=== PATIENT | female | born 1945 | race American Indian/Alaskan Native ===

== ENCOUNTER 2022-05-17 12:53 | Inpatient (IN) | payer MEDICARE ==
[2022-05-17 16:31] LABS: Basophils % (Auto) 0.6 % (0.0-1.8); Eosinophils # (Auto) 0.1 K/mm3 (0.0-0.4); Eosinophils % (Auto) 1.4 % (0.0-4.3); Hematocrit 21.5 % (30.3-42.9); Hemoglobin 7.1 gm/dl (10.1-14.3); Lymphocytes # (Auto) 1.1 K/mm3 (1.2-5.4); Mean Corpuscular HGB Conc 33 % (30-34); Mean Corpuscular Volume 103 fl (79-97); Monocytes # (Auto) 0.7 K/mm3 (0.0-0.8); Platelet Count 180 K/mm3 (140-440); Red Blood Count 2.09 M/mm3 (3.65-5.03); Red Cell Distribution Width 17.7 % (13.2-15.2)
[2022-05-17 17:18] LABS: Albumin 3.9 g/dL (3.9-5); Calcium 10.2 mg/dL (8.4-10.2)
[2022-05-17 17:30] LABS: Chol/HDL Ratio 1.85 %
--- NOTE | 2022-05-17 17:55 | Emergency Department Report ---
ED Recheck HPI - General Chief Complaint: Recheck/Abnormal Lab/Rx Stated Complaint: PAIN Time Seen by Provider: 05/17/22 17:31 Source: patient Mode of arrival: Ambulatory Limitations: Physical Limitation - History of Present Illness Initial Comments: 76-year-old female present emergency department complaint of dyspnea, dizziness, out of breath and hypotension. Patient states she is currently on Eliquis and was told today that she had low hemoglobin level. She denies any fevers chills cough or chest pain. - Related Data Allergies Allergy/AdvReac Type Severity Reaction Status Date / Time No Known Allergies Allergy Verified 05/17/22 15:20 ED Review of Systems ROS: Stated complaint: PAIN Other details as noted in HPI Constitutional: denies: chills, fever Eyes: denies: eye pain, eye discharge, vision change ENT: denies: ear pain, throat pain Respiratory: denies: cough, shortness of breath, wheezing Cardiovascular: denies: chest pain, palpitations Endocrine: no symptoms reported Gastrointestinal: denies: abdominal pain, nausea, diarrhea Genitourinary: denies: urgency, dysuria, discharge Musculoskeletal: denies: back pain, joint swelling, arthralgia Skin: denies: rash, lesions Neurological: weakness. denies: headache, paresthesias Psychiatric: denies: anxiety, depression Hematological/Lymphatic: denies: easy bleeding, easy bruising ED Physical Exam - General Limitations: Physical Limitation General appearance: alert, in no apparent distress - Head Head exam: Present: atraumatic, normocephalic - Eye Eye exam: Present: normal appearance - ENT ENT exam: Present: mucous membranes moist - Neck Neck exam: Present: normal inspection - Respiratory Respiratory exam: Present: normal lung sounds bilaterally. Absent: respiratory distress - Cardiovascular Cardiovascular Exam: Present: regular rate, normal rhythm. Absent: systolic murmur, diastolic murmur, rubs, gallop - GI/Abdominal GI/Abdominal exam: Present: soft, normal bowel sounds - Extremities Exam Extremities exam: Present: normal inspection - Back Exam Back exam: Present: normal inspection - Neurological Exam Neurological exam: Present: alert, oriented X3 - Psychiatric Psychiatric exam: Present: normal affect, normal mood - Skin Skin exam: Present: warm, dry, intact, normal color. Absent: rash ED Course Vital Signs 05/17/22 05/17/22 05/17/22 15:14 17:54 18:46 Temperature 98.2 F Pulse Rate 86 100 H 100 H Respiratory 18 18 Rate Blood Pressure Blood Pressure 81/26 111/73 112/74 [Right] O2 Sat by Pulse 98 100 99 Oximetry 05/17/22 05/17/22 05/17/22 19:59 20:00 20:16 Temperature Pulse Rate 100 H Respiratory 16 Rate Blood Pressure 120/52 106/31 Blood Pressure [Right] O2 Sat by Pulse 100 100 100 Oximetry 05/17/22 05/17/22 05/17/22 20:30 20:46 21:00 Temperature Pulse Rate 97 H 100 H 99 H Respiratory 20 14 18 Rate Blood Pressure 103/28 95/36 91/37 Blood Pressure [Right] O2 Sat by Pulse 98 99 98 Oximetry 05/17/22 05/17/22 05/17/22 21:16 21:30 21:50 Temperature Pulse Rate 102 H 102 H 102 H Respiratory 27 H 19 21 Rate Blood Pressure 112/38 99/32 107/41 Blood Pressure [Right] O2 Sat by Pulse 96 98 96 Oximetry 05/17/22 05/17/22 05/17/22 22:00 22:10 22:20 Temperature Pulse Rate 99 H 99 H 100 H Respiratory 21 22 17 Rate Blood Pressure 100/43 100/43 118/43 Blood Pressure [Right] O2 Sat by Pulse 94 97 99 Oximetry 05/17/22 05/17/22 05/17/22 22:30 22:40 22:50 Temperature Pulse Rate 103 H 103 H 101 H Respiratory 25 H 20 20 Rate Blood Pressure 116/42 116/42 98/34 Blood Pressure [Right] O2 Sat by Pulse 98 97 96 Oximetry 05/17/22 05/17/22 22:56 23:11 Temperature 98.6 F 98.4 F Pulse Rate 101 H 101 H Respiratory 18 18 Rate Blood Pressure 98/34 81/45 Blood Pressure [Right] O2 Sat by Pulse Oximetry - Reevaluation(s) Reevaluation #1: 05/17/22 18:37 On rectal exam it was pinkish stool. Given this and given that patient was initially hypotensive we will give 1 unit packed red blood cells and reassess patient. 05/17/22 23:26 Patient has been admitted to the hospitalist and she is guaiac positive. Patient has seen Dr. Johnson as an outpatient. Plan for consultation with GI on- call. ED Recheck MDM - Medical Decision Making 76-year-old female presented emergency department with complaints of feeling lightheaded dizzy and noted to have a low hemoglobin with outpatient labs. Patient's hemoglobin here is 7.1. Patient did have episode of hypotension but blood pressure now is normal. Patient's heart rate is currently normal Critical care attestation.: If time is entered above; I have spent that time in minutes in the direct care of this critically ill patient, excluding procedure time. ED Disposition Clinical Impression: GI bleed, Anemia Disposition: ADMITTED INPATIENT Is pt being admited?: Yes Does the pt Need Aspirin: No Condition: Stable
[2022-05-17] MEDS ORDERED: SODIUM CHLORIDE 0.9% 500 ML 500 ML IV ONE ×2 (18:36→23:00)
[2022-05-17] MEDS ORDERED: PANTOPRAZOLE 40 MG INJ IV ONE (21:39)
[2022-05-17] MEDS ORDERED: MORPHINE 4 MG/1 ML INJ IV PRN (21:59)
[2022-05-17] MEDS ORDERED: ACETAMINOPHEN 325 MG TAB PO PRN ×2 (21:59→22:33)
[2022-05-17] MEDS ORDERED: MORPHINE 2 MG/1 ML INJ IV PRN (21:59)
[2022-05-17] MEDS ORDERED: ONDANSETRON 4 MG/2 ML INJ IV PRN ×2 (21:59→22:33)
--- NOTE | 2022-05-17 22:43 | History and Physical Report ---
History of Present Illness Date of examination: 05/17/22 Date of admission: 05/17/2022 Chief complaint: Dizziness Shortness of Breath History of present illness: 26-year-old female with known history of end-stage renal disease on dialysis, history of pulmonary embolism on Eliquis presenting to the emergency room today complaining of shortness of breath and dizziness. Patient denies any chest pain, no fever or chills, no nausea or vomiting and no abdominal pain. Upon arrival in the emergency room today patient was found to be hypotensive with systolic blood pressure in the 90s and diastolic in the 30s. Patient states she stopped taking her Eliquis a few days ago. Work-up in the emergency room today reveals hemoglobin of 7.1 and hematocrit of 21.5. BUN of 24 and creatinine of 5.5. Troponin of 0.047. Patient was also found to be stool Hemoccult positive. She has been scheduled for unit of packed red blood cell transfusion. Patient has also been started on IV Protonix. Past History Past Medical History: dialysis, ESRD Past Surgical History: Other (AV fistula placement) Social history: no significant social history Family history: no significant family history Medications and Allergies Allergies Allergy/AdvReac Type Severity Reaction Status Date / Time No Known Allergies Allergy Verified 05/17/22 15:20 Active Meds: Active Medications Acetaminophen (Acetaminophen 325 Mg Tab) 650 mg PO Q4H PRN PRN Reason: Pain MILD(1-3)/Fever >100.5/PALAFOX Acetaminophen (Acetaminophen 325 Mg Tab) 650 mg PO Q4H PRN PRN Reason: Pain MILD(1-3)/Fever >100.5/PALAFOX Sodium Chloride (Nacl 0.9% 500 Ml) 500 mls @ 0 mls/hr IV ONCE ONE Stop: 05/17/22 23:01 Morphine Sulfate (Morphine 2 Mg/1 Ml Inj) 2 mg IV Q4H PRN PRN Reason: Pain, Moderate (4-6) Morphine Sulfate (Morphine 4 Mg/1 Ml Inj) 4 mg IV Q4H PRN PRN Reason: Pain , Severe (7-10) Ondansetron HCl (Ondansetron 4 Mg/2 Ml Inj) 4 mg IV Q8H PRN PRN Reason: Nausea And Vomiting Ondansetron HCl (Ondansetron 4 Mg/2 Ml Inj) 4 mg IV Q8H PRN PRN Reason: Nausea And Vomiting Sodium Chloride (Sodium Chloride 0.9% 10 Ml Flush Syringe) 10 ml IV BID JANET Sodium Chloride (Sodium Chloride 0.9% 10 Ml Flush Syringe) 10 ml IV PRN PRN PRN Reason: LINE FLUSH Sodium Chloride (Sodium Chloride 0.9% 10 Ml Flush Syringe) 10 ml IV BID JANET Sodium Chloride (Sodium Chloride 0.9% 10 Ml Flush Syringe) 10 ml IV PRN PRN PRN Reason: LINE FLUSH Review of Systems Constitutional: no fever, no chills Ears, nose, mouth and throat: no nasal congestion, no sore throat Cardiovascular: no chest pain, no palpitations Respiratory: shortness of breath, no cough Gastrointestinal: no abdominal pain, no nausea, no vomiting, no diarrhea Genitourinary Female: no pelvic pain, no flank pain, no dysuria Musculoskeletal: no neck pain, no low back pain Integumentary: no rash, no pruritis Neurological: no headaches, no confusion Psychiatric: no anxiety, no depression Endocrine: no polyphagia, no polydipsia, no polyuria Exam - Constitutional Vitals: Temp Pulse Resp BP Pulse Ox 98.2 F 102 H 19 99/32 98 05/17/22 15:14 05/17/22 21:30 05/17/22 21:30 05/17/22 21:30 05/17/22 21:30 General appearance: Present: no acute distress, well-nourished, obese - EENT Eyes: Present: PERRL, EOM intact. Absent: scleral icterus ENT: hearing intact, clear oral mucosa, dentition normal - Neck Neck: Present: supple, normal ROM - Respiratory Respiratory effort: normal Respiratory: bilateral: CTA - Cardiovascular Rhythm: regular Heart Sounds: Present: S1 & S2. Absent: gallop, systolic murmur, diastolic murmur, rub, click - Extremities Extremities: no ischemia, pulses intact, pulses symmetrical, No edema, normal temperature, normal color, Full ROM, abnormal (Left upper arm A-V Fistula) Peripheral Pulses: within normal limits - Abdominal General gastrointestinal: Present: soft, non-tender, non-distended, normal bowel sounds. Absent: mass - Integumentary Integumentary: Present: clear, warm, dry, normal turgor. Absent: rash - Musculoskeletal Musculoskeletal: strength equal bilaterally - Psychiatric Psychiatric: appropriate mood/affect, intact judgment & insight, memory intact, cooperative - Neurologic Neurologic: CNII-XII intact, no focal deficits, moves all extremities HEART Score - HEART Score Troponin: Troponin T 0.047 ng/mL (0.00-0.029) H D 05/17/22 18:30 Results - Labs CBC & Chem 7: 05/17/22 16:15 05/17/22 16:15 Labs: Abnormal lab results 05/17/22 05/17/22 05/17/22 Range/Units 16:15 16:15 16:22 RBC 2.09 L (3.65-5.03) M/mm3 Hgb 7.1 L (10.1-14.3) gm/dl Hct 21.5 L (30.3-42.9) % MCV 103 H (79-97) fl MCH 34 H (28-32) pg RDW 17.7 H (13.2-15.2) % [place] % (Auto) 11.0 H (0.0-7.3) % Lymph # (Auto) 1.1 L (1.2-5.4) K/mm3 Sodium 146 H (137-145) mmol/L BUN 24 H (7-17) mg/dL Creatinine 5.5 H (0.6-1.2) mg/dL Glucose 125 H (65-100) mg/dL Total Bilirubin 1.70 H (0.1-1.2) mg/dL Alkaline Phosphatase 143 H (35-129) units/L Troponin T 0.059 H (0.00-0.029) ng/mL Total Protein 5.7 L (6.3-8.2) g/dL LDL Cholesterol Direct 41 L (50-130) mg/dL HDL Cholesterol 61 H (40-59) mg/dL Crossmatch See Detail 05/17/22 Range/Units 18:30 RBC (3.65-5.03) M/mm3 Hgb (10.1-14.3) gm/dl Hct (30.3-42.9) % MCV (79-97) fl MCH (28-32) pg RDW (13.2-15.2) % [place] % (Auto) (0.0-7.3) % Lymph # (Auto) (1.2-5.4) K/mm3 Sodium (137-145) mmol/L BUN (7-17) mg/dL Creatinine (0.6-1.2) mg/dL Glucose (65-100) mg/dL Total Bilirubin (0.1-1.2) mg/dL Alkaline Phosphatase (35-129) units/L Troponin T 0.047 H D (0.00-0.029) ng/mL Total Protein (6.3-8.2) g/dL LDL Cholesterol Direct (50-130) mg/dL HDL Cholesterol (40-59) mg/dL Crossmatch Assessment and Plan Assessment: 1.Anemia-possibly secondary to GI bleed. 2.ESRD- on dialysis 3.H/O Pulmonary Embolism-on Eliquis Plan: 1.Patient to have blood transfusion. Will monitor CBC 2.GI consult for evaluation and recommendations 3.Nephrology consult for dialysis 4.Will resume routine home medications once reconciled . DVT Prophylaxis: Sequential Compression device CODE STATUS: Full code
[2022-05-18 05:16] LABS: INR 0.98 (0.87-1.13)
[2022-05-18 05:17] LABS: Partial Thromboplastin Time 29.1 Sec. (24.2-36.6)
[2022-05-18 05:23] LABS: Calcium 9.6 mg/dL (8.4-10.2)
--- NOTE | 2022-05-18 09:52 | Gastroenterology Consultation ---
History of Present Illness - Reason for Consult Consult date: 05/18/22 anemia Requesting physician: JOCELYNE LENZ - History of Present Illness The patient is a 76 yo female with esrd on dialysis, h/o PE on eliquis (pt held a few days ago) presented from dialysis due to hypotension and anemia. No overt gi bleeding. was seen by Dr Johnson in clinic due to abd pain with plans for EGD as outpatient at [facility] next month. Denies abd pain at present time or nsaid's. Past History Past Medical History: dialysis, ESRD Past Surgical History: Other (AV fistula placement) Social history: no significant social history Family history: no significant family history Medications and Allergies Allergies Allergy/AdvReac Type Severity Reaction Status Date / Time No Known Allergies Allergy Verified 05/17/22 15:20 Active Meds: Active Medications Acetaminophen (Acetaminophen 325 Mg Tab) 650 mg PO Q4H PRN PRN Reason: Pain MILD(1-3)/Fever >100.5/PALAFOX Morphine Sulfate (Morphine 2 Mg/1 Ml Inj) 2 mg IV Q4H PRN PRN Reason: Pain, Moderate (4-6) Morphine Sulfate (Morphine 4 Mg/1 Ml Inj) 4 mg IV Q4H PRN PRN Reason: Pain , Severe (7-10) Ondansetron HCl (Ondansetron 4 Mg/2 Ml Inj) 4 mg IV Q8H PRN PRN Reason: Nausea And Vomiting Sodium Chloride (Sodium Chloride 0.9% 10 Ml Flush Syringe) 10 ml IV BID JANET Sodium Chloride (Sodium Chloride 0.9% 10 Ml Flush Syringe) 10 ml IV PRN PRN PRN Reason: LINE FLUSH Reviewed/updated patient's home and current medications Review of Systems - Review of Systems All systems: negative (per HPI) Exam - Constitutional Vital Signs: Temp Pulse Resp BP Pulse Ox 98.1 F 96 H 18 115/43 98 05/18/22 04:35 05/18/22 04:35 05/18/22 04:35 05/18/22 04:35 05/18/22 08:00 General appearance: no acute distress - Respiratory Respiratory effort: normal Respiratory: bilateral: CTA - Cardiovascular Rhythm: regular Heart Sounds: Present: S1 & S2 - Gastrointestinal General gastrointestinal: Present: soft, non-tender, non-distended - Neurologic Neurological: alert and oriented x3 - Psychiatric Psychiatric: appropriate mood/affect - Labs CBC & Chem 7: 05/17/22 16:15 05/18/22 04:48 Lab Results: Laboratory Results - last 24 hr 05/17/22 05/17/22 05/17/22 16:15 16:15 16:22 WBC 6.1 RBC 2.09 L Hgb 7.1 L Hct 21.5 L MCV 103 H MCH 34 H MCHC 33 RDW 17.7 H Plt Count 180 Lymph % (Auto) 18.0 [place] % (Auto) 11.0 H Eos % (Auto) 1.4 Baso % (Auto) 0.6 Lymph # (Auto) 1.[address] [place] # (Auto) 0.7 Eos # (Auto) 0.1 Baso # (Auto) 0.0 Seg Neutrophils % 69.0 Seg Neutrophils # 4.2 PT INR APTT Sodium 146 H Potassium 3.7 Chloride 102.5 Carbon Dioxide 30 Anion Gap 17 BUN 24 H Creatinine 5.5 H Estimated GFR 8 BUN/Creatinine Ratio 4 Glucose 125 H Calcium 10.2 Total Bilirubin 1.70 H AST 37 ALT 17 Alkaline Phosphatase 143 H Troponin T 0.059 H Total Protein 5.7 L Albumin 3.9 Albumin/Globulin Ratio 2.2 Triglycerides 98 Cholesterol 113 LDL Cholesterol Direct 41 L HDL Cholesterol 61 H Cholesterol/HDL Ratio 1.85 Blood Type O POSITIVE Antibody Screen Negative Crossmatch See Detail 05/17/22 05/18/22 05/18/22 18:30 04:48 04:48 WBC RBC Hgb Hct MCV MCH MCHC RDW Plt Count Lymph % (Auto) [place] % (Auto) Eos % (Auto) Baso % (Auto) Lymph # (Auto) [place] # (Auto) Eos # (Auto) Baso # (Auto) Seg Neutrophils % Seg Neutrophils # PT 14.1 INR 0.98 APTT 29.1 Sodium 147 H Potassium 3.9 Chloride 105.0 Carbon Dioxide 31 H Anion Gap 15 BUN 30 H Creatinine 6.0 H Estimated GFR 8 BUN/Creatinine Ratio 5 Glucose 86 Calcium 9.6 Total Bilirubin AST ALT Alkaline Phosphatase Troponin T 0.047 H D Total Protein Albumin Albumin/Globulin Ratio Triglycerides Cholesterol LDL Cholesterol Direct HDL Cholesterol Cholesterol/HDL Ratio Blood Type Antibody Screen Crossmatch Assessment and Plan 1. Anemia with heme positive stool - denies overt gi bleeding. given prior abd pain and AC use, will plan EGD today. unclear baseline H/H, but suspect has anemia of chronic disease as well from renal failure 2. Abdominal pain - per outpatient clinic note, no obvious symptoms at present time. 3. History of PE - pt self discontinued anticoagulation a few days ago.
[2022-05-18] MEDS ORDERED: EPINEPHrine 1 MG/10 ML SYRINGE ONE (10:01)
[2022-05-18] MEDS ORDERED: SODIUM CHLORIDE 0.9% 1000 ML 1,000 ML ONE (10:01)
--- NOTE | 2022-05-18 10:27 | Anesthesia Consultation ---
Anesthesia Consult and Med Hx Date of service: 05/18/22 - Airway Anesthetic Teeth Evaluation: Dentures (upper and lower) ROM Head & Neck: Adequate Mental/Hyoid Distance: Adequate Mallampati Class: Class II Intubation Access Assessment: Probably Good - Pre-Operative Health Status ASA Pre-Surgery Classification: ASA4 Proposed Anesthetic Plan: MAC - Pulmonary Hx Smoking: No Hx Respiratory Symptoms: No - Cardiovascular System Hx Hypertension: Yes Hx Heart Attack/AMI: No Hx Percutaneous Transluminal Coronary Angioplasty (PTCA): No Hx Peripheral Vascular Disease: No (PE 2001; last dose eliquis 4 days ago) - Central Nervous System CVA: Yes (TIA 2001) - Endocrine Hx End Stage Renal Disease: Yes (last HD 05/17/22) Hx Liver Disease: No Hx Insulin Dependent Diabetes: No Hx Non-Insulin Dependent Diabetes: No Hx Thyroid Disease: No - Hematic Hx Anemia: Yes - Other Systems Hx Obesity: Yes (BMI 48)
--- NOTE | 2022-05-18 10:27 | Anesthesia Day of Surgery ---
Anesthesia Day of Surgery - Day of Surgery Patient Examined: Yes Patient H&P Reviewed: Yes Patient is NPO: Yes
[2022-05-18] MEDS ORDERED: LIDOCAINE MPF (2%) 20 MG/1 ML VIAL 5 ML ONE (10:30)
[2022-05-18] MEDS ORDERED: ONDANSETRON 4 MG/2 ML INJ ONE (10:30)
[2022-05-18] MEDS ORDERED: propofoL 200 MG/20 ML VIAL IV ONE (10:30)
--- NOTE | 2022-05-18 10:41 | Operative Report ---
Operative Report Operative Report: Esophagogastroduodenoscopy Procedure Note Date of procedure: 05/18/2022 Endoscopist: Avtar Chirinos Pre-op diagnosis/indication: Anemia, Heme positive stool Post-op diagnosis: GAVE (watermelon stomach) MEDICATIONS: MAC COMPLICATIONS: No immediate complications ESTIMATED BLOOD LOSS: None DESCRIPTION OF PROCEDURE: After consent was obtained, the patient was placed in the left lateral decubitis position. The olympus endoscope was inserted into the patient's mouth under direct vision and advanced to the 2nd portion of the duodenum without difficulty. The patient tolerated the procedure well. The views of the mucosa were good. The patient's vital signs were monitored continuously throughout the procedure. FINDINGS: There were two B rings in the mid and distal esophagus which were non- obstructing and widely patent. There was a moderate sized hiatal hernia with some bonilla erosions but no high risk bleeding lesions. 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 No active bleeding was seen. The duodenum appeared normal. IMPRESSION: 1. GAVE (watermelon stomach) in antrum without active bleeding. Likely contributing source to anemia however. 2. Hiatal hernia with bonilla erosions 3. B ring in mid and distal esophagus RECOMMENDATIONS: -check iron studies and start iron replacement therapy as indicated based on labs -recommend PPI daily given bonilla erosions -keep scheduled outpatient endoscopy for next month with Dr Johnson for possible APC of GAVE based on f/u labs and response to iron -can resume diet from gi stand point -monitor labs and transfuse if hgb < 7 -will follow-up tomorrow
[2022-05-18 11:12] LABS: Hematocrit 21.6 % (30.3-42.9); Hemoglobin 7.2 gm/dl (10.1-14.3)
--- NOTE | 2022-05-18 13:02 | Post Anesthesia Evaluation ---
- Post Anesthesia Evaluation Patient Participated: Yes Airway Patent: Yes Stable Respiratory Function: Yes Nausea/Vomiting: No Temp > 96.8F: Yes Pain Manageable: Yes Adequeate Hydration: Yes Anesthesia Complications: No
[2022-05-18 15:41] LABS: Hemoglobin 6.8 gm/dl (10.1-14.3)
[2022-05-18 15:47] LABS: Hematocrit 19.8 % (30.3-42.9)
[2022-05-18] MEDS: PANTOPRAZOLE 40 MG TAB PO SCH (15:55)
--- NOTE | 2022-05-18 16:11 | Progress Note ---
Assessment and Plan 1.Anemia-possibly secondary to GI bleed. 2.ESRD- on dialysis 3.H/O Pulmonary Embolism-on Eliquis Plan: 1.Patient to have blood transfusion. Will monitor CBC 2.GI consult for evaluation and recommendations 3.Nephrology consult for dialysis 4.Will resume routine home medications once reconciled . DVT Prophylaxis: Sequential Compression device CODE STATUS: Full code Subjective Date of service: 05/18/22 Objective - Constitutional Vitals: Vital Signs - 12hr 05/18/22 05/18/22 05/18/22 04:35 08:00 10:10 Temperature 98.1 F 98.6 F Pulse Rate 96 H 100 H Respiratory 18 16 Rate Blood Pressure 115/43 129/57 O2 Sat by Pulse 95 98 95 Oximetry 05/18/22 05/18/22 05/18/22 10:37 10:42 10:47 Temperature 98.2 F Pulse Rate 89 91 H 93 H Respiratory 21 16 16 Rate Blood Pressure 111/38 122/36 119/44 O2 Sat by Pulse 100 100 97 Oximetry 05/18/22 05/18/22 05/18/22 10:57 11:56 15:56 Temperature 98.3 F 97.9 F Pulse Rate 90 88 93 H Respiratory 16 16 18 Rate Blood Pressure 107/46 103/46 106/48 O2 Sat by Pulse 97 98 97 Oximetry - Labs CBC & Chem 7: 05/18/22 14:27 05/18/22 04:48 Labs: Abnormal lab results 05/17/22 05/17/22 05/17/22 Range/Units 16:15 16:15 16:22 RBC 2.09 L (3.65-5.03) M/mm3 Hgb 7.1 L (10.1-14.3) gm/dl Hct 21.5 L (30.3-42.9) % MCV 103 H (79-97) fl MCH 34 H (28-32) pg RDW 17.7 H (13.2-15.2) % [place] % (Auto) 11.0 H (0.0-7.3) % Lymph # (Auto) 1.1 L (1.2-5.4) K/mm3 Sodium 146 H (137-145) mmol/L Carbon Dioxide (22-30) mmol/L BUN 24 H (7-17) mg/dL Creatinine 5.5 H (0.6-1.2) mg/dL Glucose 125 H (65-100) mg/dL Total Bilirubin 1.70 H (0.1-1.2) mg/dL Alkaline Phosphatase 143 H (35-129) units/L Troponin T 0.059 H (0.00-0.029) ng/mL Total Protein 5.7 L (6.3-8.2) g/dL LDL Cholesterol Direct 41 L (50-130) mg/dL HDL Cholesterol 61 H (40-59) mg/dL Crossmatch See Detail 05/17/22 05/18/22 05/18/22 Range/Units 18:30 04:48 09:53 RBC (3.65-5.03) M/mm3 Hgb 7.2 L (10.1-14.3) gm/dl Hct 21.6 L (30.3-42.9) % MCV (79-97) fl MCH (28-32) pg RDW (13.2-15.2) % [place] % (Auto) (0.0-7.3) % Lymph # (Auto) (1.2-5.4) K/mm3 Sodium 147 H (137-145) mmol/L Carbon Dioxide 31 H (22-30) mmol/L BUN 30 H (7-17) mg/dL Creatinine 6.0 H (0.6-1.2) mg/dL Glucose (65-100) mg/dL Total Bilirubin (0.1-1.2) mg/dL Alkaline Phosphatase (35-129) units/L Troponin T 0.047 H D (0.00-0.029) ng/mL Total Protein (6.3-8.2) g/dL LDL Cholesterol Direct (50-130) mg/dL HDL Cholesterol (40-59) mg/dL Crossmatch 05/18/22 Range/Units 14:27 RBC (3.65-5.03) M/mm3 Hgb 6.8 L (10.1-14.3) gm/dl Hct 19.8 L* (30.3-42.9) % MCV (79-97) fl MCH (28-32) pg RDW (13.2-15.2) % [place] % (Auto) (0.0-7.3) % Lymph # (Auto) (1.2-5.4) K/mm3 Sodium (137-145) mmol/L Carbon Dioxide (22-30) mmol/L BUN (7-17) mg/dL Creatinine (0.6-1.2) mg/dL Glucose (65-100) mg/dL Total Bilirubin (0.1-1.2) mg/dL Alkaline Phosphatase (35-129) units/L Troponin T (0.00-0.029) ng/mL Total Protein (6.3-8.2) g/dL LDL Cholesterol Direct (50-130) mg/dL HDL Cholesterol (40-59) mg/dL Crossmatch HEART Score - HEART Score Troponin: Troponin T 0.047 ng/mL (0.00-0.029) H D 05/17/22 18:30
--- NOTE | 2022-05-18 18:08 | Electrocardiograph Report ---
[facility] Test Date: 2022-05-17 Test Time: 15:36:44 Pat Name: DALE TONG Department: Room: A384 1 Gender: F Ip Architect: NURSE : [id number] Requested By: FARRUKH SRINIVASAN Order Number: [id number] Reading MD: Shay Fofana Measurements Intervals [place] Rate: 101 P: 23 MD: 159 QRS: -21 QRSD: 95 T: 21 QT: 380 QTc: 492 Interpretive Statements Sinus tachycardia Low voltage, precordial leads No previous ECG available for comparison Electronically Signed On 05-18-2022 18:08:17 EDT by Shay Fofana
[2022-05-19 01:01] LABS: Hematocrit 20.9 % (30.3-42.9); Hemoglobin 6.8 gm/dl (10.1-14.3)
--- NOTE | 2022-05-19 08:47 | Event Note ---
Date: 05/18/22 Came to see the patient in the room, she is out for testing, has been in the room patient is currently being followed by Dr. Reza's group for nephrology, and dialysis need, events of this hospitalization were noted, there is no emergent indication for renal replacement therapy today we will follow to make recommendations
--- NOTE | 2022-05-19 08:49 | Consultation ---
History of Present Illness - History of Present Illness Thank you for the consultation ! Patient was evaluated today, My assessment and plan are as follows #End-stage kidney disease: Patient will continue to receive hemodialysis treatment 3 times a week, she is currently being followed by Dr. 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: Undergoing GI work-up had stopped taking her Eliquis, was also hypotensive and dizzy symptomatic with prior history of pulmonary embolism, Will give erythropoietin as well as ferric gluconate #Elevated bilirubin but normal AST and ALT, need to fractionate the bilirubin, due to anemia will also need to rule out any evidence of hemolysis, check LDH reticulocyte count, should be considered for hematology evaluation as well Bone mineral disorder and secondary hyperparathyroidism; Monitor phosphorus binders as necessary goal phosphorus less than 5-1/2 #Diet and nutrition: High-protein diet, multivitamin, Nepro, #Medication recommendation: All related questions have been addressed with the patient including diet lifestyle changes fluid restriction sodium restrictions avoidance of processed food as much as possible If you have any question in regards to this patient renal care please feel free to contact me at [phone] Author: Sim Zavaleta M.D. [facility], [address] [place] [address] Tel; [phone] [employer] History of present illness 76-year-old female who is currently dialysis dependent and being followed by Dr. Reza was admitted here with hypotension came off Eliquis and was also noted to be anemic undergoing GI work-up, patient underwent upper endoscopy yesterday, events of this hospitalization were noted, as of today her hemoglobin is 6.8 upon admission 7.1 BUN 30 creatinine is 6.0 potassium 3.9, she is currently not on any antihypertensive medications, Past medical history: End-stage kidney disease, currently on maintenance hemodialysis Anemia in end-stage renal disease Bone mineral disorder and secondary hyperparathyroidism History of pulmonary embolism Current allergies: Reviewed from the current chart Social history: Reviewed from the current chart Family history: Reviewed from the current chart Review of system: Positive for stopped Eliquis, presenting with hypotension generalized weakness and fatigue All other review of systems negative Physical examination Vitals: Reviewed General: No acute distress HEENT: Oral mucosa moist no pallor or icterus Neck: Supple without any JVD thyromegaly or nodular mass Chest: Clear to auscultation Heart: Regular rate and rhythm S1-S2 heard no S3-S4 Abdomen: Soft nontender, bowel sounds present no renal bruit no suprapubic masses no CVA tenderness noted Extremity: Minimal edema dry skin no peripheral cyanosis Endocrine: Thyroid not enlarged Psychiatric: No agitation and aggression noted Musculoskeletal: No joint effusion noted Labs and x-rays: Reviewed from this admission Past History Past Medical History: dialysis, ESRD Past Surgical History: Other (AV fistula placement) Social history: no significant social history Family history: no significant family history Medications and Allergies Allergies Allergy/AdvReac Type Severity Reaction Status Date / Time No Known Allergies Allergy Verified 05/17/22 15:20 Active Meds: Active Medications Acetaminophen (Acetaminophen 325 Mg Tab) 650 mg PO Q4H PRN PRN Reason: Pain MILD(1-3)/Fever >100.5/PALAFOX Morphine Sulfate (Morphine 2 Mg/1 Ml Inj) 2 mg IV Q4H PRN PRN Reason: Pain, Moderate (4-6) Morphine Sulfate (Morphine 4 Mg/1 Ml Inj) 4 mg IV Q4H PRN PRN Reason: Pain , Severe (7-10) Ondansetron HCl (Ondansetron 4 Mg/2 Ml Inj) 4 mg IV Q8H PRN PRN Reason: Nausea And Vomiting Pantoprazole Sodium (Pantoprazole 40 Mg Tab) 40 mg PO BIDAC [facility] Last Admin: 05/18/22 15:55 Dose: 40 mg Sodium Chloride (Sodium Chloride 0.9% 10 Ml Flush Syringe) 10 ml IV BID [facility] Last Admin: 05/18/22 21:27 Dose: 10 ml Sodium Chloride (Sodium Chloride 0.9% 10 Ml Flush Syringe) 10 ml IV PRN PRN PRN Reason: LINE FLUSH Exam - Vital Signs Vital signs: Vital Signs Temp Pulse BP Pulse Ox 98.2 F 86 81/26 98 05/17/22 15:14 05/17/22 15:14 05/17/22 15:14 05/17/22 15:14 Results - Lab Results 05/19/22 14:07 05/19/22 14:07 Most recent lab results Calcium 9.6 mg/dL (8.4-10.2) 05/18/22 04:48
[2022-05-19] MEDS ORDERED: SODIUM FERRIC GLUCON/SUCRO 250 MG in SODIUM CHLORIDE 0.9% 100 ML IV NR (08:52)
[2022-05-19] MEDS: PANTOPRAZOLE 40 MG TAB PO SCH ×2 (09:50→18:47)
[2022-05-19] MEDS ORDERED: EPOETIN ALFA-EPBX 20,000 UNIT/1 ML VIAL SUB-Q SCH (10:30)
--- NOTE | 2022-05-19 13:52 | Gastroenterology Progress Note ---
Assessment and Plan 1. Anemia - stable, EGD findings could be contributing but also likely component of anemia of chronic disease related to renal failure 2. ESRD -s/p EGD with [facility] in antrum; no active bleeding. monitor labs/response to iron/epo and if no meaningful improvement, can consider EGD with [facility] as outpatient (has appt with Dr Johnson). will sign off, please call as needed Subjective Date of service: 05/19/22 Principal diagnosis: anemia Interval history: no new gi complaints/symptoms. bm earlier today without overt bleeding Objective - Exam Narrative Exam: gen: nad abd: soft, nt CV: rrr - Constitutional Vitals: Temp Pulse Resp BP Pulse Ox 98.3 F 94 H 21 111/50 95 05/19/22 05:41 05/19/22 05:41 05/19/22 05:41 05/19/22 05:41 05/19/22 08:00 - Labs CBC & Chem 7: 05/18/22 23:37 05/18/22 04:48 Labs: Laboratory Results - last 24 hr 05/18/22 05/18/22 14:27 23:37 Hgb 6.8 L 6.8 L Hct 19.8 L* 20.9 L
[2022-05-19 14:16] LABS: Hematocrit 22.1 % (30.3-42.9); Hemoglobin 7.2 gm/dl (10.1-14.3); Mean Corpuscular HGB Conc 33 % (30-34); Mean Corpuscular Volume 100 fl (79-97); Platelet Count 153 K/mm3 (140-440); Red Blood Count 2.21 M/mm3 (3.65-5.03); Red Cell Distribution Width 19.4 % (13.2-15.2)
[2022-05-19 14:30] LABS: Iron 50 ug/dL (37-170); Total Iron Binding Capacity 204 mcg/dL (250-450)
--- NOTE | 2022-05-19 14:38 | Progress Note ---
Assessment and Plan 1.Anemia-possibly secondary to GI bleed. 2.ESRD- on dialysis 3.H/O Pulmonary Embolism-on Eliquis Plan: 1.Patient to have blood transfusion. Will monitor CBC 2.GI consult for evaluation and recommendations 3.Nephrology consult for dialysis 4.Will resume routine home medications once reconciled . DVT Prophylaxis: Sequential Compression device CODE STATUS: Full code Subjective Date of service: 05/19/22 Principal diagnosis: anemia Objective - Constitutional Vitals: Vital Signs - 12hr 05/19/22 05/19/22 05:41 08:00 Temperature 98.3 F Pulse Rate 94 H Respiratory 21 Rate Blood Pressure 111/50 O2 Sat by Pulse 99 95 Oximetry - Labs CBC & Chem 7: 05/20/22 02:13 05/19/22 14:07 Labs: Abnormal lab results 05/18/22 05/18/22 05/19/22 Range/Units 14:27 23:37 14:07 WBC 4.3 L (4.5-11.0) K/mm3 RBC 2.21 L (3.65-5.03) M/mm3 Hgb 6.8 L 6.8 L 7.2 L (10.1-14.3) gm/dl Hct 19.8 L* 20.9 L 22.1 L (30.3-42.9) % MCV 100 H (79-97) fl MCH 33 H (28-32) pg RDW 19.4 H (13.2-15.2) % Percent Retic 5.95 H (0.78-2.58) % TIBC (250-450) mcg/dL Lactate Dehydrogenase (91-180) units/L 05/19/22 Range/Units 14:07 WBC (4.5-11.0) K/mm3 RBC (3.65-5.03) M/mm3 Hgb (10.1-14.3) gm/dl Hct (30.3-42.9) % MCV (79-97) fl MCH (28-32) pg RDW (13.2-15.2) % Percent Retic (0.78-2.58) % TIBC 204 L (250-450) mcg/dL Lactate Dehydrogenase 219 H (91-180) units/L HEART Score - HEART Score Troponin: Troponin T 0.047 ng/mL (0.00-0.029) H D 08/30/22 18:30
[2022-05-19 15:12] LABS: Bilirubin,Direct 0.4 mg/dL (0-0.2); Calcium 9.2 mg/dL (8.4-10.2)
[2022-05-19 16:50] LABS: Hepatitis B Surface Antigen Nonreactive (Negative); Hepatitis C Virus Antibody Nonreactive (NonReactive)
[2022-05-20 00:48] LABS: Hematocrit 21.1 % (30.3-42.9); Hemoglobin 7.1 gm/dl (10.1-14.3)
[2022-05-20 02:42] LABS: Basophils % (Auto) 0.3 % (0.0-1.8); Eosinophils # (Auto) 0.1 K/mm3 (0.0-0.4); Hematocrit 21.9 % (30.3-42.9); Lymphocytes # (Auto) 0.7 K/mm3 (1.2-5.4); Lymphocytes % (Auto) 14.7 % (13.4-35.0); Mean Corpuscular HGB Conc 32 % (30-34); Mean Corpuscular Volume 102 fl (79-97); Monocytes # (Auto) 0.5 K/mm3 (0.0-0.8); Monocytes % (Auto) 10.4 % (0.0-7.3); Platelet Count 125 K/mm3 (140-440); Red Blood Count 2.16 M/mm3 (3.65-5.03); Red Cell Distribution Width 19.4 % (13.2-15.2)
[2022-05-20 03:51] VITALS: BP 118/46
[2022-05-20] MEDS: PANTOPRAZOLE 40 MG TAB PO SCH (07:41)
--- NOTE | 2022-05-20 08:47 | Progress Note ---
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 currently erythropoietin 20,000 unit weekly and endoscopy did not show any evidence of active bleed Diet and nutrition, consider Nepro, multivitamin,We will order for nutrition consultation we will continue to hold Renvela Admitted with abdominal pain, patient was also taking febuxostat which should be discontinued, she was also taking Renvela which should be withheld for now due to abdominal pain this medicine does have potential GI toxicity, If there are any renal related issues in regards to this patient please feel free to reach out without any hesitation at [phone] We'll continue to follow and make recommendation for renal standpoint. Progress note by: Sim Zavaleta MD [address] [place] [id number] Tele [phone] [email or web address] Patient was seen today for follow-up of multiple renal related issues No complaints of any chest pain pressure or shortness of breath Interdisciplinary notes that also reviewed Events of 24 hours vitals labs intake output medications were reviewed Past medical history: Reviewed Family history: Reviewed Social history: Reviewed Allergies: Reviewed Physical examination: Vitals: Reviewed HEENT: No pallor or icterus oral mucosa moist Neck: Supple no JVD no thyromegaly Chest: Bilateral clear to auscultation anteriorly Heart: Regular rate and rhythm S1-S2 heard no S3-S4 Abdomen: Soft nontender no voluntary guarding rigidity rebound Extremity: Dry skin less than 1+ peripheral edema Psychiatric: No evidence of agitation and aggression noted Dermatology: No petechial rashes Labs and x-rays: Reviewed from today Admitted with abdominal pain, patient was also taking febuxostat which should be discontinued, she was also taking Renvela which should be withheld for now due to abdominal pain this medicine does have potential GI toxicity, If there are any renal related issues in regards to this patient please feel free to reach out without any hesitation at [phone] We'll continue to follow and make recommendation for renal standpoint. Progress note by: Sim Zavaleta MD [address] [place] [id number] Tele [phone] [email or web address] Patient was seen today for follow-up of multiple renal related issues Patient has had short dialysis treatment for 3 hours yesterday due to relatively low blood pressure Interdisciplinary notes that also reviewed Events of 24 hours vitals labs intake output medications were reviewed Past medical history: Reviewed Family history: Reviewed Social history: Reviewed Allergies: Reviewed Physical examination: Vitals: Reviewed HEENT: No pallor or icterus oral mucosa moist Neck: Supple no JVD no thyromegaly Chest: Bilateral clear to auscultation anteriorly Heart: Regular rate and rhythm S1-S2 heard no S3-S4 Abdomen: Soft nontender no voluntary guarding rigidity rebound Extremity: Dry skin less than 1+ peripheral edema Psychiatric: No evidence of agitation and aggression noted Dermatology: No petechial rashes Labs and x-rays: Reviewed from today Objective - Vital Signs Vital signs: Vital Signs - 12hr 05/19/22 05/19/22 05/20/22 22:39 23:43 03:49 Temperature 98.4 F 98.5 F Pulse Rate 98 H Respiratory 18 16 Rate Blood Pressure 95/39 118/46 O2 Sat by Pulse 100 95 Oximetry 05/20/22 05/20/22 03:51 03:52 Temperature Pulse Rate 101 H Respiratory Rate Blood Pressure O2 Sat by Pulse 95 Oximetry - Lab 05/20/22 02:13 05/19/22 14:07 Most recent lab results Calcium 9.2 mg/dL (8.4-10.2) 05/19/22 14:07 Medications & Allergies - Medications Allergies/Adverse Reactions: Allergies No Known Allergies Allergy (Verified 05/17/22 15:20) Home Medications: Home Medications Medication Instructions Recorded Confirmed Last Taken Type Apixaban [Eliquis] 2.5 mg PO BID 05/20/22 05/20/22 1 Week Ago History ~05/13/22 AtorvaSTATin [Lipitor] 40 mg PO QHS 05/20/22 05/20/22 05/16/22 History Febuxostat [Uloric] 80 mg PO QDAY 05/20/22 05/20/22 05/16/22 History Pantoprazole [Protonix] 40 mg PO QDAY 05/20/22 05/20/22 05/16/22 History Sevelamer Carbonate [Renvela] 3,200 mg PO TIDWM 05/20/22 05/20/22 05/16/22 History Vit B Comp No.3/Folic/C/Biotin 1 each PO QDAY 05/20/22 05/20/22 05/16/22 History [Chely-Tolu Rx Tablet] Active Medications: Generic Name Dose Route Start Last Admin Trade Name Freq PRN Reason Stop Dose Admin Acetaminophen 650 mg 05/17/22 22:33 Acetaminophen 325 Mg Tab PO Q4H PRN Pain MILD(1-3)/Fever >100.5/PALAFOX Epoetin Teodoro-epbx 20,000 unit 05/19/22 10:30 05/19/22 19:15 Epoetin Teodoro-Epbx 20,000 Unit/1 Ml Vial SUB-Q 20,000 unit HAYDEE JANET Administration Ferric Sodium Gluconate 120 mls @ 100 mls/hr 05/19/22 08:52 05/19/22 17:45 Complex 250 mg/ Sodium IV 05/20/22 23:59 100 mls/hr Chloride HAYDEE NR Administration Morphine Sulfate 2 mg 05/17/22 21:59 Morphine 2 Mg/1 Ml Inj IV Q4H PRN Pain, Moderate (4-6) Morphine Sulfate 4 mg 05/17/22 21:59 Morphine 4 Mg/1 Ml Inj IV Q4H PRN Pain , Severe (7-10) Ondansetron HCl 4 mg 05/17/22 22:33 Ondansetron 4 Mg/2 Ml Inj IV Q8H PRN Nausea And Vomiting Pantoprazole Sodium 40 mg 05/18/22 16:30 05/20/22 07:41 Pantoprazole 40 Mg Tab PO 40 mg BIDAC JANET Administration Sodium Chloride 10 ml 05/18/22 10:00 05/19/22 22:59 Sodium Chloride 0.9% 10 Ml Flush Syringe IV 10 ml BID JANET Administration Sodium Chloride 10 ml 05/17/22 22:33 Sodium Chloride 0.9% 10 Ml Flush Syringe IV PRN PRN LINE FLUSH
[2022-05-20] MEDS ORDERED: MIDODRINE 2.5 MG TAB PO SCH (09:00)
[2022-05-20] MEDS ORDERED: EPOETIN ALFA-EPBX 20,000 UNIT/1 ML VIAL SUB-Q PRN (09:00)
[2022-05-20] MEDS ORDERED: FOLIC ACID/VIT B COMP W-C 1 MG (RENAL CAPS) PO SCH (10:00)
[2022-05-20] MEDS ORDERED: FLUDROCORTISONE 0.1 MG TAB PO SCH (10:00)
--- NOTE | 2022-05-20 13:37 | Discharge Summary ---
Providers - Providers Date of Admission: 05/17/22 21:59 Date of discharge: 05/20/22 Attending physician: JOCELYNE LENZ 05/17/22 22:33 Consult to Physician [CONS] Routine Comment: Consulting Provider: GENE NORTON Physician Instructions: Reason For Exam: GI Bleed 05/17/22 22:36 Consult to Physician [CONS] Routine Comment: Consulting Provider: JINNY LANGLEY Physician Instructions: Reason For Exam: ESRD on dialysis 05/20/22 08:48 Consult to Dietitian/Nutrition [CONS] Routine Physician Instructions: Reason For Exam: Nepro twice daily Reason for Consult: Pt needs oral supplement Primary care physician: HUMBLE PHILLIPS Hospitalization Condition: Stable Disposition: 01 HOME / SELF CARE / HOMELESS Final Discharge Diagnosis (Prints w/discharge instructions): 1.Anemia-possibly secondary to GI bleed. 2.ESRD- on dialysis. 3.H/O Pulmonary Embolism-on Eliquis Time spent for discharge: 34 minutes Core Measure Documentation - Palliative Care Palliative Care/ Comfort Measures: Not Applicable Exam - Constitutional Vitals: Temp Pulse Resp BP Pulse Ox 98.5 F 101 H 16 118/46 95 05/20/22 03:49 05/20/22 03:51 05/20/22 03:49 05/20/22 03:49 05/20/22 09:04 Plan Activity: advance as tolerated Weight Bearing Status: Weight Bear as Tolerated Diet: renal Follow up with: HUMBLE PHILLIPS MD [Primary Care Provider] - 7 Days LITO VALENCIA MD [Referring] - 7 Days Prescriptions: Midodrine [Proamatine] 2.5 mg PO 0600,1800 #14 tablet Pantoprazole [Protonix TAB] 40 mg PO BIDAC #60 tablet
== END 2022-05-20 14:15 | disposition home or self-care (01) | DRG 377 ==
LOC: ED 12:53 → 3A 21:59
PROVIDERS: ADMIT Internal Medicine Geriatric Medicine; ATTEND Internal Medicine
PROC: 30233N1 Transfusion of Nonautologous Red Blood Cells into Peripheral Vein, Percutaneous Approach (ICD-10-PCS; 2022-05-17)
PROC: 0DJ08ZZ Inspection of Upper Intestinal Tract, Via Natural or Artificial Opening Endoscopic (ICD-10-PCS; principal; 2022-05-18)
PROC: 5A1D70Z Performance of Urinary Filtration, Intermittent, Less than 6 Hours Per Day (ICD-10-PCS; 2022-05-19)
DX: K31.811 Angiodysplasia of stomach and duodenum with bleeding (principal); N18.6 End stage renal disease; I12.0 Hypertensive chronic kidney disease with stage 5 chronic kidney disease or end stage renal disease; E87.0 Hyperosmolality and hypernatremia; Z99.2 Dependence on renal dialysis; Z86.711 Personal history of pulmonary embolism; Z86.73 Personal history of transient ischemic attack (TIA), and cerebral infarction without residual deficits; K44.9 Diaphragmatic hernia without obstruction or gangrene; D63.1 Anemia in chronic kidney disease; I95.9 Hypotension, unspecified
CPT/HCPCS: 36415; 80048; 80053; 80061; 80074; 82247; 82248; 82270; 82607; 82747; 83010; 83550; 83615; 84484; 85014; 85018; 85025; 85027; 85045; 85610; 85730; 86850; 86900; 86901; 86920; 93005; G0378; C9113; J0171; J0885; J2405; J2704; J2916; J7030; J7040; P9016